=== PATIENT | female | born 1995 | race Caucasian/White ===

== ENCOUNTER 2017-06-26 12:01 | Inpatient (IN) | payer MEDICAID ==
[2017-06-27] MEDS ORDERED: Aluminum Hydroxide/Magnesium Hydroxide/Simethicone Susp 30 ML Cup PO PRN (16:44)
[2017-06-27] MEDS ORDERED: Ondansetron 4 MG/2 ML SDV IVPUSH PRN (16:44)
[2017-06-27] MEDS ORDERED: Nalbuphine 20 MG/1 ML Amp IVPUSH PRN (16:44)
[2017-06-27] MEDS ORDERED: Lidocaine 1% 50 ML MDV INJECT PRN (16:44)
[2017-06-27] MEDS ORDERED: Oxytocin/Lactated Ringers 10 UNIT/1,000 ML BAG IV SCH (16:45)
[2017-06-27] MEDS: Misoprostol 25 MCG (1/4 of 100 MCG) Tab VAG SCH ×3 (17:23→23:36)
[2017-06-27] MEDS ORDERED: Bupivacaine 0.25% 10 ML SDV ONE (22:22)
[2017-06-28] MEDS ORDERED: Oxytocin/Lactated Ringers 10 UNIT/1,000 ML BAG IV SCH
[2017-06-28] MEDS: Lactated Ringers 1,000 ML IV SCH ×2 (03:10→08:44)
[2017-06-28] MEDS ORDERED: fentaNYL 100 MCG/2 ML SDV ONE (03:44)
[2017-06-28] MEDS ORDERED: fentaNYL 100 MCG/2 ML SDV EPIDUR PRN (04:01)
[2017-06-28] MEDS ORDERED: Ondansetron 4 MG/2 ML SDV IVPUSH PRN (04:01)
[2017-06-28] MEDS ORDERED: ePHEDrine 50 MG/ML SDV IVPUSH PRN (04:01)
[2017-06-28] MEDS ORDERED: diphenhydrAMINE 50 MG/ML SDV IVPUSH PRN (04:01)
[2017-06-28] MEDS: Bupivacaine/fentaNYL/NS 100 ML Bag EPIDUR SCH ×2 (04:22→11:00)
--- NOTE | 2017-06-28 04:39 | PCM.PREANE ---
Preanesthetic Assessment - Procedure Proposed Procedure: KRISTIAN - Anesthesia/Transfusion/Family Hx Anesthesia History: No Prior Anesthesia Family History of Anesthesia Reaction: No Transfusion History: No Prior Transfusion(s) - Review of Systems General: No Symptoms Pulmonary: Other (asthma- prn inhaler ) Cardiovascular: No Symptoms Gastrointestinal: No Symptoms Neurological: No Symptoms Other: Reports: None - Physical Assessment NPO Status Date: 06/27/17 NPO Status Time: 17:00 O2 Sat by Pulse Oximetry: 94 Respiratory Rate: 17 Vital Signs: Last Vital Signs Temp 36.2 C 06/27/17 16:44 Pulse 102 H 06/27/17 16:44 Resp 17 06/27/17 16:44 BP 124/70 06/27/17 16:44 Pulse Ox 94 L 06/27/17 16:44 Height: 1.68 m Weight: 113.942 kg ASA Class: 2 Mental Status: Alert & Oriented x3 Airway Class: Mallampati = 2 Dentition: Reports: Normal Dentition Thyro-Mental Finger Breadths: 3 Mouth Opening Finger Breadths: 3 ROM/Head Extension: Full Lungs: Clear to Auscultation, Normal Respiratory Effort Cardiovascular: Regular Rate, Regular Rhythm - Lab Values: Laboratory Last Values WBC 10.58 K/mm3 (3.98-10.04) H 06/27/17 16:10 RBC 3.99 M/mm3 (3.98-5.22) 06/27/17 16:10 Hgb 12.3 gm/L (11.2-15.7) 06/27/17 16:10 Hct 35.7 % (34.1-44.9) 06/27/17 16:10 MCV 89.5 fl (79.4-94.8) 06/27/17 16:10 MCH 30.8 pg (25.6-32.2) 06/27/17 16:10 MCHC 34.5 g/dl (32.2-35.5) 06/27/17 16:10 RDW Std Deviation 38.2 fL (36.4-46.3) 06/27/17 16:10 Plt Count 337 K/mm3 (182-369) 06/27/17 16:10 MPV 9.3 fl (9.4-12.3) L 06/27/17 16:10 Neut % (Auto) 75.6 % (34.0-71.1) H 06/27/17 16:10 Lymph % (Auto) 14.2 % (19.3-51.7) L 06/27/17 16:10 [facility] [place] [facility] % (Auto) 7.9 % (4.7-12.5) 06/27/17 16:10 Eos % (Auto) 2.0 (0.7-5.8) 06/27/17 16:10 Baso % (Auto) 0.1 % (0.1-1.2) 06/27/17 16:10 Neut # (Auto) 8.00 K/mm3 (1.56-6.13) H 06/27/17 16:10 Lymph # (Auto) 1.50 K/mm3 (1.18-3.74) 06/27/17 16:10 [facility] [place] [facility] # (Auto) 0.84 K/mm3 (0.24-0.36) H 06/27/17 16:10 Eos # (Auto) 0.21 K/mm3 (0.04-0.36) 06/27/17 16:10 Baso # (Auto) 0.01 K/mm3 (0.01-0.08) 06/27/17 16:10 - Allergies Allergies/Adverse Reactions: Allergies Allergy/AdvReac Type Severity Reaction Status Date / Time azithromycin [From Zithromax] Allergy Rash Verified 06/27/17 15:57 Latex, Natural Rubber Allergy Rash Verified 06/27/17 15:57 - Blood Blood Available: No Product(s) Available: None - Anesthesia Plan Pre-Op Medication Ordered: None - Acknowledgements Anesthesia Type Planned: Epidural Pt an Appropriate Candidate for the Planned Anesthesia: Yes Alternatives and Risks of Anesthesia Discussed w Pt/Guardian: Yes Pt/Guardian Understands and Agrees with Anesthesia Plan: Yes PreAnesthesia Questionnaire Respiratory History: Reports: Asthma Psychiatric History: Reports: Anxiety, Depression, PTSD - SUBSTANCE USE Smoking Status *Q: Former Smoker Tobacco Use Within Last Twelve Months: Cigarettes Second Hand Smoke Exposure: No Recreational Drug Use History: No - HOME MEDS Home Medications: Home Meds Vit W-Ca,Fe,FA(<1 mg) [ Vitamins] 1 tab PO DAILY 06/27/17 [ History] - CURRENT (IN HOUSE) MEDS Current Meds: Current Medications Al Hydroxide/Mg Hydroxide (Mag-Al Plus) 30 ml PO Q8H PRN PRN Reason: Heartburn Diphenhydramine HCl (Benadryl) 25 mg IVPUSH Q6H PRN PRN Reason: Pruritis Ephedrine Sulfate (Ephedrine Sulfate) 5 mg IVPUSH ASDIRECTED PRN PRN Reason: Hypotension Fentanyl (Sublimaze) 100 mcg EPIDUR Q3H PRN PRN Reason: Pain Last Admin: 06/28/17 04:22 Dose: 100 mcg Fentanyl/Bupivacaine HCl (Fentanyl/Bupivacaine/Ns 2 Mcg-0.125% 100 Ml) 100 ml EPIDUR ASDIRECTED JAJA Last Admin: 06/28/17 04:22 Dose: 100 ml Lactated Ringer's (Ringers, Lactated) 1,000 mls @ 100 mls/hr IV ASDIRECTED JAJA Last Admin: 06/28/17 03:10 Dose: 100 mls/hr Oxytocin/Lactated Ringer's (Pitocin In Lr 10 Units/1,000 Ml) 10 unit in 1,000 mls @ 12 mls/hr IV TITRATE JAJA; 2 MUNITS/MIN PRN Reason: Protocol Last Admin: 06/28/17 03:10 Dose: 2 munits/min, 12 mls/hr Oxytocin/Lactated Ringer's (Pitocin In Lr 10 Units/1,000 Ml) 10 unit in 1,000 mls @ 500 mls/hr IV .CONTINUOUS JAJA Lidocaine HCl (Xylocaine 1%) 50 ml INJECT ONETIME PRN PRN Reason: perineal pain Nalbuphine HCl (Nubain) 10 mg IVPUSH Q2H PRN PRN Reason: Pain (moderate 4-6) Ondansetron HCl (Zofran) 4 mg IVPUSH Q4H PRN PRN Reason: Nausea/Vomiting Ondansetron HCl (Zofran) 4 mg IVPUSH ONETIME PRN PRN Reason: Nausea/Vomiting Discontinued Medications Fentanyl (Sublimaze) Confirm Administered Dose 100 mcg .ROUTE .STK-MED ONE Stop: 06/28/17 03:45 Misoprostol (Cytotec) 25 mcg VAG Q3H [facility] Stop: 06/27/17 23:01 Last Admin: 06/27/17 23:36 Dose: 25 mcg
--- NOTE | 2017-06-28 07:58 | HP ---
DATE OF ADMISSION: 06/27/2017 ADMISSION DIAGNOSIS: 39 and 2/7th week intrauterine , elective induction of labor. HISTORY OF PRESENT ILLNESS: The patient is a 21-year-old 1, para 0, white female, who is admitted for elective induction of labor. She has an COLLIN of 07/02/2017 as based upon a certain last menstrual period starting 09/25/2016 and supported by 5 ultrasounds done since that time. The procedure of induction of labor with Cytotec and Pitocin is discussed in detail. The risks, benefits, alternatives of care including waiting for onset of natural labor are all discussed in detail. She appears to understand, wishes to proceed and is admitted for that purpose. 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 The patient had menarche at age 13. Cycles every 30 days. Positive HCG was on 10/27/2016. Her last menstrual period was 09/25/2016 and was approximate. Her first visit was on 12/28/2016 at 13 and 3/7th weeks. The patient was seen on a regular basis throughout the course. Her weight gain was from 200 up to 248.6 pounds. Her vital signs remained stable throughout the course. Her fundal height growth was appropriate. She is planning to breastfeed. She was in the centering program. She declined genetic evaluation. She has had some depression with anxiety symptoms. [place]eda depression screen score on 02/19/2017 was 11/30. Her group B strep screen is negative. The patient has a history of PTSD/depression. She is Rh negative and did receive RhoGAM. Her influenza and Tdap were both administered on 04/16/2015. She is rubella immune. LABORATORY DATA: laboratory testing shows blood to be B negative with a negative antibody screen. Her hemoglobin and platelets at first visit were 14.4 g/dL and 255,000 respectively. She is rubella immune. RPR is nonreactive. Hepatitis B surface antigen is negative. HIV assays negative as were chlamydia and gonorrhea assays. Second trimester testing shows hemoglobin of 12.9 g/dL, platelets were 336,000, and 1-hour GTT was 81. Her group B strep screen was negative. ALLERGIES: Zithromax, which causes a rash. CURRENT MEDICATIONS: 1. History of sertraline 50 mg tablets daily. 2. ProAir HFA 108 mcg per actuation inhaler. 3. vitamins 1 daily. PAST MEDICAL HISTORY: 1. Asthma. 2. History of depression. 3. History of PTSD secondary to parental problems. PAST SURGICAL HISTORY: Unremarkable. FAMILY HISTORY: Mother is alive and has bipolar disorder. Father is alive with alcohol abuse and heart disease. One sister is alive and well. Maternal grandparents are not known. Paternal grandmother is alive, well, but with increased cholesterol. Paternal grandfather secondary to colon cancer. No bleeding, clotting, or anesthesia problems noted in the family. SOCIAL HISTORY: The patient is single. Her significant other is Bridger Barksdale. She lives in [place]. She does not use any significant amounts of alcohol, drugs, or tobacco. REVIEW OF SYSTEMS: GENERAL: The patient is doing well. She is comfortable, alert and oriented x3. SKIN: Unremarkable. CARDIOVASCULAR: No exercise intolerance or chest pain. LUNGS/RESPIRATORY: No shortness of breath or infectious symptomatology. BREASTS: Changes associated with - the patient plans to nurse. GASTROINTESTINAL: Negative. GENITOURINARY: Increased uterine size secondary to with baby in vertex presentation. CERVIX: 1-2 cm, 80% effaced, soft, -3 station, mid position on last evaluation on 06/18/2017. EXTREMITIES: Grossly within normal limits. NEUROLOGICAL: Grossly within normal limits. ASSESSMENT: 1. Thirty-nine and 2/7th week intrauterine , admitted for elective induction of labor. 2. Group B strep screen negative. 3. Generally healthy female otherwise. 4. Center inpatient. PLAN: 1. Anticipate normal spontaneous vaginal delivery. We will continue with Cytotec cervical ripening x3 doses and then switch to Pitocin augmentation/induction. We will rupture membranes at appropriate time. 2. Epidural for pain control. 3. Support nursing decision. [facility] /[id number]
--- NOTE | 2017-06-28 16:11 | PCM.SN ---
- Free Text/Narrative Note: Delivery note: Maria Del Carmen is a 21-year-old 1 now para 1001 white female who was admitted 06/27/2017 for induction of labor at 39-4/7. She progressed slowly but steadily to complete cervical dilation by the morning of 06/28/2017. She pushed for less than an hour and delivered a viable, holland, male infant weighing 3380 g (7 pounds 7.2 ounces), length of 20.5 inches, with Apgars of 8 and 9 at 1125 hrs. on 06/28/2017. Baby was placed on mom's abdomen. Nose multiple section. Cords clamped 2 and then was cut by the father. Cord blood was obtained. The cord had 3 vessels present in it. Pitocin semester and IV after delivery of the baby to facilitate increase in uterine tone and reduce risk of bleeding. The placenta delivered at in a Harmon presentation at 1128 hrs., it appeared complete and intact. It was discarded per patient desire. Patient plans to nurse. Estimated blood loss 100 mL. Condition: Good
[2017-06-28] MEDS ORDERED: Acetaminophen 325 MG Tab PO PRN (17:17)
[2017-06-28] MEDS ORDERED: Benzocaine/Menthol 20%-0.5% Spray 56 GM Canister TOP PRN (17:17)
[2017-06-28] MEDS ORDERED: Docusate Sodium 100 MG Cap PO PRN (17:17)
[2017-06-28] MEDS ORDERED: Lanolin 100% Cream 7 GM Tube TOP PRN (17:17)
[2017-06-28] MEDS ORDERED: Witch Hazel Medicated Pads 100/Jar TOP PRN (17:17)
[2017-06-28] MEDS: Ibuprofen 600 MG Tab PO PRN (21:09)
[2017-06-29] MEDS: Ibuprofen 600 MG Tab PO PRN ×3 (03:43→20:10)
--- NOTE | 2017-06-29 09:56 | PCM48HPAN ---
Post Anesthesia Note - EVALUATION WITHIN 48HRS OF ANESTHETIC Vital Signs in Normal Range: Yes Patient Participated in Evaluation: Yes Respiratory Function Stable: Yes Airway Patent: Yes Cardiovascular Function Stable: Yes Hydration Status Stable: Yes Pain Control Satisfactory: Yes Nausea and Vomiting Control Satisfactory: Yes Mental Status Recovered: Yes
[2017-06-29] MEDS: Prenatal Multivitamin with Calcium/Folic Acid/Iron Tab PO SCH (14:08)
[2017-06-30] MEDS: Prenatal Multivitamin with Calcium/Folic Acid/Iron Tab PO SCH (08:24)
[2017-06-30] MEDS: Ibuprofen 600 MG Tab PO PRN (09:52)
--- NOTE | 2017-06-30 10:06 | PCM.SN ---
- Free Text/Narrative Note: Post Progress Note PPD # 1 Subjective: Doing well overall. Ambulating without difficulty. Lochia minimal. Voiding without difficulty. Tolerating regular diet. Pain controlled with oral medications. Breast feeding with minimal difficulty. Objective: Vitals: Vital Signs 06/30/17 03:45 Temperature 36.3 C Pulse, 95 Peripheral Respiratory 15 Rate Blood Pressure 116/59 L O2 Sat by Pulse 99 Oximetry Physical Exam General: Alert and oriented, no acute distress Lungs: Clear to auscultation bilaterally Heart: Regular rate and rhythm Abdomen: Soft, minimal appropriate tenderness, non-distended, fundus midline, nontender, and below the umbilicus Extremities: No edema ASSESSMENT: 21-year-old female G 1 P 1001 s/p normal vaginal delivery PPD #2, complicated by Rh- status PLAN: Doing well Breast feeding with minimal difficulty. Assist as needed Lochia minimal. Continue to monitor for appropriate lochia. Continue routine care Patient with Rh- blood status status post RhoGAM administration Anticipate discharge home today Mykel Meraz MD 10:05 AM 06/30/2017
--- NOTE | 2017-06-30 10:13 | PCM.DCSUM1 ---
Discharge Summary - Hospital Course Free Text/Narrative:: Delivery note: Maria Del Carmen is a 21-year-old 1 now para 1001 white female who was admitted 06/27/2017 for induction of labor at 39-4/7. She progressed slowly but steadily to complete cervical dilation by the morning of 06/28/2017. She pushed for less than an hour and delivered a viable, holland, male weighing 3380 g (7 pounds 7.2 ounces), length of 20.5 inches, with Apgars of 8 and 9 at 1125 hrs. on 06/28/2017. Baby was placed on mom's abdomen. Nose multiple section. Cords clamped 2 and then was cut by the father. Cord blood was obtained. The cord had 3 vessels present in it. Pitocin semester and IV after delivery of the baby to facilitate increase in uterine tone and reduce risk of bleeding. The placenta delivered at in a Harmon presentation at 1128 hrs., it appeared complete and intact. It was discarded per patient desire. Patient plans to nurse. Estimated blood loss 100 mL. Condition: Good HPI Initial Comments: Delivery note: Maria Del Carmen is a 21-year-old 1 now para 1001 white female who was admitted 06/27/2017 for induction of labor at 39-4/7. She progressed slowly but steadily to complete cervical dilation by the morning of 06/28/2017. She pushed for less than an hour and delivered a viable, holland, male weighing 3380 g (7 pounds 7.2 ounces), length of 20.5 inches, with Apgars of 8 and 9 at 1125 hrs. on 06/28/2017. Baby was placed on mom's abdomen. Nose multiple section. Cords clamped 2 and then was cut by the father. Cord blood was obtained. The cord had 3 vessels present in it. Pitocin semester and IV after delivery of the baby to facilitate increase in uterine tone and reduce risk of bleeding. The placenta delivered at in a Harmon presentation at 1128 hrs., it appeared complete and intact. It was discarded per patient desire. Patient plans to nurse. Estimated blood loss 100 mL. Condition: Good Brief History: Delivery note: Maria Del Carmen is a 21-year-old 1 now para 1001 white female who was admitted 06/27/2017 for induction of labor at 39-4/7. She progressed slowly but steadily to complete cervical dilation by the morning of 06/28/2017. She pushed for less than an hour and delivered a viable, holland, male weighing 3380 g (7 pounds 7.2 ounces), length of 20.5 inches, with Apgars of 8 and 9 at 1125 hrs. on 06/28/2017. Baby was placed on mom's abdomen. Nose multiple section. Cords clamped 2 and then was cut by the father. Cord blood was obtained. The cord had 3 vessels present in it. Pitocin semester and IV after delivery of the baby to facilitate increase in uterine tone and reduce risk of bleeding. The placenta delivered at in a Harmon presentation at 1128 hrs., it appeared complete and intact. It was discarded per patient desire. Patient plans to nurse. Estimated blood loss 100 mL. Condition: Good - Discharge Data Discharge Date: 06/30/17 Discharge Disposition: Home, Self-Care 01 Condition: Good - Discharge Diagnosis/Problem(s) (1) (normal spontaneous vaginal delivery) SNOMED Code(s): 37975694 ICD Code: O80 - ENCOUNTER FOR FULL-TERM UNCOMPLICATED DELIVERY Status: Acute Current Visit: Yes (2) Rh negative status during SNOMED Code(s): 354596023 ICD Code: O09.899 - SUPERVISION OF OTHER HIGH RISK PREGNANCIES, UNSP TRIMESTER Status: Acute Current Visit: Yes - Patient Summary/Data Complications: None Consults: None Hospital Course: Patient was admitted for induction of labor on 06/27/2017. She progressed to complete and pushing and had a normal spontaneous vaginal delivery on 2016. Her course was overall uncomplicated and she was meeting all milestones. She was tolerating regular diet with minimal nausea and vomiting. She was voiding without difficulty. She was ambulating with minimal difficulty. She was breast-feeding without difficulty. She was Rh- blood type and received RhoGAM prior to discharge. On day #2 she was continuing to meet all milestones and desired to be discharged home. She will follow up with Dr. Pearson in 2 weeks or earlier as needed. - Patient Instructions Diet: Regular Diet as Tolerated Activity: As Tolerated Activity, Other: Nothing per vagina for 6 weeks Driving: May Drive Today Showering/Bathing: May Shower, No Tub Bathing/Swimming (For 2 weeks) Notify Provider of: Fever, Increased Pain, Swelling and Redness, Drainage, Nausea and/or Vomiting - Discharge Plan Home Medications: Home Meds Vit W-Ca,Fe,FA(<1 mg) [ Vitamins] 1 tab PO DAILY 06/27/17 [ History] Acetaminophen [Tylenol] 650 mg PO Q6H PRN tablet 06/30/17 [Rx] Docusate Sodium [Colace] 100 mg PO BID PRN cap 06/30/17 [Rx] Ibuprofen [IJD: Ibuprofen] 600 mg PO Q6H PRN tablet 06/30/17 [Rx] Lanolin [Lansinoh HPA] 1 applic TOP ASDIRECTED PRN tube 06/30/17 [Rx] Witch Regla [Tucks] 1 pad TOP ASDIRECTED PRN pad 06/30/17 [Rx] Patient Handouts: Mastitis, [id number], and Mastitis, Depression and Baby Blues, Vaginal Delivery, Care After, Challenges and Solutions Referrals: Orlin Pearson MD [Primary Care Provider] - (Follow-up in 2 weeks or earlier as needed.) - Discharge Summary/Plan Comment DC Time >30 min.: No - Patient Data Vitals - Most Recent: Last Vital Signs Temp 36.3 C 06/30/17 03:45 Pulse 95 06/30/17 03:45 Resp 15 06/30/17 03:45 BP 116/59 L 06/30/17 03:45 Pulse Ox 99 06/30/17 03:45 Weight - Most Recent: 113.942 kg I&O - Last 24 hours: Intake & Output 06/29/17 06/30/17 06/30/17 22:59 06:59 14:59 Intake Total 120 Balance 120 Med Orders - Current: Current Medications Acetaminophen (Tylenol) 650 mg PO Q4H PRN PRN Reason: mild pain or fever Benzocaine/Menthol (Dermoplast Pain Relief [place]) 0 gm TOP ASDIRECTED PRN PRN Reason: Perineal Comfort Measure Last Admin: 06/29/17 12:19 Dose: 1 spray Docusate Sodium (Colace) 100 mg PO BID PRN PRN Reason: Constipation Emollient Ointment (Lansinoh Hpa) 0 gm TOP ASDIRECTED PRN PRN Reason: Sore Nipples Ibuprofen (Motrin) 600 mg PO Q4H PRN PRN Reason: Mild pain or fever Last Admin: 06/30/17 09:52 Dose: 600 mg Prenat Multivit/Sabine/Iron/Folic Ac ( Plus Iron) 1 each PO DAILY JAJA Last Admin: 06/30/17 08:24 Dose: Not Given Elinor Regla (Tucks) 1 pad TOP ASDIRECTED PRN PRN Reason: Hemorrhoid pain Last Admin: 06/29/17 12:20 Dose: 1 pad Discontinued Medications Al Hydroxide/Mg Hydroxide (Mag-Al Plus) 30 ml PO Q8H PRN PRN Reason: Heartburn Bupivacaine HCl (Sensorcaine-Mpf 0.25%) 10 ml .ROUTE .STK-MED ONE Stop: 06/27/17 22:23 Diphenhydramine HCl (Benadryl) 25 mg IVPUSH Q6H PRN PRN Reason: Pruritis Ephedrine Sulfate (Ephedrine Sulfate) 5 mg IVPUSH ASDIRECTED PRN PRN Reason: Hypotension Fentanyl (Sublimaze) Confirm Administered Dose 100 mcg .ROUTE .STK-MED ONE Stop: 06/28/17 03:45 Last Admin: 06/28/17 04:37 Dose: Not Given Fentanyl (Sublimaze) 100 mcg EPIDUR Q3H PRN PRN Reason: Pain Last Admin: 06/28/17 04:22 Dose: 100 mcg Fentanyl/Bupivacaine HCl (Fentanyl/Bupivacaine/Ns 2 Mcg-0.125% 100 Ml) 100 ml EPIDUR ASDIRECTED JAJA Last Admin: 06/28/17 11:00 Dose: 100 ml Lactated Ringer's (Ringers, Lactated) 1,000 mls @ 100 mls/hr IV ASDIRECTED JAJA Last Admin: 06/28/17 08:44 Dose: 100 mls/hr Oxytocin/Lactated Ringer's (Pitocin In Lr 10 Units/1,000 Ml) 10 unit in 1,000 mls @ 12 mls/hr IV TITRATE JAJA; 2 MUNITS/MIN PRN Reason: Protocol Last Titration: 06/28/17 08:30 Dose: 1 munits/min, 6 mls/hr Oxytocin/Lactated Ringer's (Pitocin In Lr 10 Units/1,000 Ml) 10 unit in 1,000 mls @ 500 mls/hr IV .CONTINUOUS JAJA Lidocaine HCl (Xylocaine 1%) 50 ml INJECT ONETIME PRN PRN Reason: perineal pain Misoprostol (Cytotec) 25 mcg VAG Q3H JAJA Stop: 06/27/17 23:01 Last Admin: 06/27/17 23:36 Dose: 25 mcg Nalbuphine HCl (Nubain) 10 mg IVPUSH Q2H PRN PRN Reason: Pain (moderate 4-6) Ondansetron HCl (Zofran) 4 mg IVPUSH Q4H PRN PRN Reason: Nausea/Vomiting Ondansetron HCl (Zofran) 4 mg IVPUSH ONETIME PRN PRN Reason: Nausea/Vomiting *Q Meaningful Use (DIS) - VTE *Q VTE Criteria *Q: - Stroke *Q Stroke Criteria *Q: - AMI *Q AMI Criteria *Q:
== END 2017-06-30 11:44 | disposition home or self-care (01) | DRG 775 ==
LOC: JD.OB 06-27 15:27 → OBSVTOIN 06-27 16:02 → INTOOBSV 06-27 16:02 → JD.OB 06-27 16:02 → OBSVTOIN 06-28 11:35 → JD.OB 06-28 11:35 → UNDODISIN 06-30 11:44
PROVIDERS: ADMIT Obstetrics & Gynecology; ATTEND Obstetrics & Gynecology
PROC: 10E0XZZ Delivery of Products of Conception, External Approach (ICD-10-PCS; principal; 2017-06-28)
PROC: 3E0234Z Introduction of Serum, Toxoid and Vaccine into Muscle, Percutaneous Approach (ICD-10-PCS; 2017-06-28)
PROC: 3E0P3VZ Introduction of Hormone into Female Reproductive, Percutaneous Approach (ICD-10-PCS; 2017-06-28)
PROC: 3E0P7VZ Introduction of Hormone into Female Reproductive, Via Natural or Artificial Opening (ICD-10-PCS; 2017-06-28)
PROC: 00HU33Z Insertion of Infusion Device into Spinal Canal, Percutaneous Approach (ICD-10-PCS; 2017-06-28)
DX: O36.0930 Maternal care for other rhesus isoimmunization, third trimester, not applicable or unspecified (principal); O99.52 Diseases of the respiratory system complicating childbirth; Z3A.39 39 weeks gestation of pregnancy; Z37.0 Single live birth; J45.909 Unspecified asthma, uncomplicated; Z87.891 Personal history of nicotine dependence; Z88.1 Allergy status to other antibiotic agents; Z91.040 Latex allergy status
CPT/HCPCS: 36415; 51702; 59409; 85025; 85027; 85461; 86850; 86900; 86901; A9270-GY; J2590; J2790; J3010; J7120

== ENCOUNTER 2019-09-05 08:48 | Emergency (ER) | payer MEDICAID ==
--- NOTE | 2019-09-05 09:40 | EDM.PDOC ---
ED HPI GENERAL MEDICAL PROBLEM - General Chief Complaint: Headache Stated Complaint: HEADACHE Time Seen by Provider: 09/05/19 09:40 Source of Information: Reports: Patient History Limitations: Reports: No Limitations - History of Present Illness INITIAL COMMENTS - FREE TEXT/NARRATIVE: 23-year-old female presents to the ED with acute onset of illness yesterday morning with fever and headache. This is subsequently developed into a productive cough generalized myalgia and loss of appetite. All symptoms strongly suspicious for influenza. Dates the headache is generalized constant throbbing and pounding. Associate with very mild nausea. Complete loss of appetite. She feels very weak and dizzy when she tries to stand up. She has been using Tylenol and Motrin mostly yesterday throughout the day to get through work and to control fever relief. Did not sleep very well last night. Cough sounds productive but she is not able to get much sputum up. History of migraines. Denies any possibility of Onset: Sudden Onset Date: 09/04/19 (Woke with headache and fever yesterday morning.) Duration: Day(s):, Getting Worse Location: Reports: Head, Chest, Generalized, Other (Neurolyse myalgia loss of appetite) Quality: Reports: Ache Severity: Moderate (Lysed aching.) Improves with: Reports: None Worsens with: Reports: None Associated Symptoms: Reports: Cough (Weight loss of appetite.), cough w sputum, Loss of Appetite, Malaise, Other Treatments [employer]ER: Reports: Acetaminophen, NSAIDS Headache Pain Score (Numeric/FACES): 8 - Related Data Allergies Allergy/AdvReac Type Severity Reaction Status Date / Time azithromycin [From Zithromax] Allergy Rash Verified 09/05/19 09:00 Latex, Natural Rubber Allergy Rash Verified 09/05/19 09:00 Home Meds: Home Meds Vit Calc,Iron,Folic [ Vitamins] 1 tab PO DAILY 06/27/17 [ History] Acetaminophen [Tylenol] 650 mg PO Q6H PRN tablet 06/30/17 [Rx] Hydrocodone/Chlorphen P-Stirex [Hydrocodone-Chlorphen ER Susp] 5 ml PO Q12H PRN #60 ml 09/05/19 [Rx] Montelukast [Singulair] 10 mg PO DAILY 09/05/19 [History] Oseltamivir [Tamiflu] 75 mg PO BID #10 cap 09/05/19 [Rx] Sertraline [Zoloft] 150 mg PO DAILY 09/05/19 [History] Past Medical History Respiratory History: Reports: Asthma Psychiatric History: Reports: Anxiety, Depression, PTSD Social & Family History - Family History Family Medical History: Noncontributory - Tobacco Use Smoking Status *Q: Current Every Day Smoker Years of Tobacco use: 3 Packs/Tins Daily: 0.5 - Caffeine Use Caffeine Use: Reports: Coffee - Recreational Drug Use Recreational Drug Use: No - Living Situation & Occupation Living situation: Reports: Single Occupation: Employed ED ROS GENERAL - Review of Systems Review Of Systems: See Below Constitutional: Reports: Fever, Chills, Malaise, Weakness, Fatigue, Decreased Appetite HEENT: Reports: Ear Pain, Throat Pain Respiratory: Reports: Shortness of Breath, Cough, Sputum Cardiovascular: Reports: Chest Pain, Lightheadedness. Denies: Blood Pressure Problem (Coughing), Claudication, Dyspnea on Exertion, Edema (Standing up), Orthopnea Endocrine: Reports: Fatigue, Other (Neurolyse weakness) GI/Abdominal: Reports: Decreased Appetite, Nausea. Denies: Diarrhea, Vomiting : Reports: No Symptoms (Nausea) Musculoskeletal: Reports: Muscle Pain (Generalized myalgia) Skin: Reports: No Symptoms Neurological: Reports: Dizziness, Headache Psychiatric: Reports: No Symptoms Hematologic/Lymphatic: Reports: No Symptoms Immunologic: Reports: No Symptoms - Physical Exam Exam: See Below Exam Limited By: No Limitations General Appearance: Alert, WD/WN, Mild Distress, Other (Peers ill. She is warm to palpation. Temperature is 36.7 but she feels much warmer than this. Heart rate is 128 in sinus at the bedside. Respiratory is 20 with O2 sats of 94% on room air. BP is 122/80) Eye Exam: Bilateral Eye: Normal Inspection, PERRL Ears: Normal TMs Throat/Mouth: Normal Lips, Normal Teeth, Normal Gums, Normal Voice, No Airway Compromise, Inflammation (Diffuse erythema of the posterior oropharynx and soft palate. May be from coughing.), Other (Oropharynx is diffusely erythematous and some of the soft tissues particular soft palate and glossopalatine folds on the right side are slightly swollen with mild exudate. Rapid strep will be done ). No: Normal Oropharynx Head Exam: Atraumatic, Normocephalic Neck: Normal Inspection, Supple, Non-Tender, Full Range of Motion. No: Lymphadenopathy (L), Lymphadenopathy (R) Respiratory/Chest: No Respiratory Distress, Lungs Clear, Normal Breath Sounds, No Accessory Muscle Use Cardiovascular: Normal Peripheral Pulses, Regular Rate, Rhythm, No Edema, No Murmur, No Rub GI/Abdominal: Normal Bowel Sounds, Soft, Non-Tender, No Organomegaly Neuro Exam (Abbreviated): Alert, Oriented, CN II-XII Intact, Normal Cognition, Normal Gait Extremities: Normal Inspection, Normal Range of Motion, Non-Tender Psychiatric: Normal Affect, Normal Mood Skin Exam: Warm, Dry, Intact, Normal Color, No Rash Course - Vital Signs Last Recorded V/S: Last Vital Signs Temp 36.7 C 09/05/19 08:58 Pulse 128 H 09/05/19 08:58 Resp 20 09/05/19 08:58 BP 122/80 09/05/19 08:58 Pulse Ox 94 L 09/05/19 08:58 - Orders/Labs/Meds Orders: Active Orders 24 hr Category Date Time Status CULTURE STREP A CONFIRMATION [] Stat Lab 09/05/19 10:10 Results STREP SCRN A RAPID W CULT CONF [] Stat Lab 09/05/19 10:10 Results Dextrose 5%-0.9% NaCl [Dextrose 5%-Normal Saline] 1,000 Med 09/05/19 10:00 Active ml IV ASDIRECTED Ketorolac [Toradol] Med 09/05/19 10:00 Active 30 mg IVPUSH ONETIME Medication Orders Dextrose/Sodium Chloride (Dextrose 5%-Normal Saline) 1,000 mls @ 999 mls/hr IV ASDIRECTED JAJA Last Admin: 09/05/19 10:18 Dose: 999 mls/hr Ketorolac Tromethamine (Toradol) 30 mg IVPUSH ONETIME JAJA Last Admin: 09/05/19 10:19 Dose: 30 mg Meds: Medications Generic Name Dose Route Start Last Admin Trade Name Freq PRN Reason Stop Dose Admin Dextrose/Sodium Chloride 1,000 mls @ 999 mls/hr 09/05/19 10:00 09/05/19 10:18 Dextrose 5%-Normal Saline IV 999 mls/hr ASDIRECTED JAJA Administration Ketorolac Tromethamine 30 mg 09/05/19 10:00 09/05/19 10:19 Toradol IVPUSH 30 mg ONETIME JAJA Administration Discontinued Medications Generic Name Dose Route Start Last Admin Trade Name Saravanan PRN Reason Stop Dose Admin Hydromorphone HCl 1 mg 09/05/19 09:50 09/05/19 10:53 Dilaudid IVPUSH 09/05/19 09:51 0.5 mg ONETIME ONE Administration Metoclopramide HCl 7.5 mg 09/05/19 09:50 09/05/19 10:19 Reglan IVPUSH 09/05/19 09:51 7.5 mg ONETIME ONE Administration - Radiology Interpretation Free Text/Narrative:: 23-year-old female presents to the ED with acute onset of fever and then headache and development of a paroxysmal productive cough and loss of appetite starting yesterday morning. Headache is continuous throbbing and worsened by cough. Clinically she has all the signs and symptoms of influenza. She is tachycardic at the bedside at 128. She clinically is febrile in spite of nurses recording of temperature 36.9. Plan IV will be D5 normal saline at open. She will be given Toradol 30 mg IV with allotted 1 mg IV and Reglan 7.5 mg IV for headache body ache and pain relief. She will have screens done for rapid strep and influenza. Note her O2 sats only 94% on room air suggesting possibility of airspace consolidation. - Re-Assessments/Exams Free Text/Narrative Re-Assessment/Exam: 09/05/19 10:36 strep screen is negative. 09/05/19 11:36 influenza screen is positive for the type A virus. Patient will be treated with Tamiflu 75 mg twice daily for the next 5 days. She will be out of work for the another 6 days since her illness started yesterday. I will send her home with cough syrup Penntuss 5 mils every 12 hours as needed for cough relief. She will continue Motrin 600 mg every 6 hours as needed for fever and body ache relief. She has pretty well finished a liter of IV fluids and is feeling better at this point in time. I will give prophylactic medication to her son who is starting to cough today and has asthma. He is name is Abiel barksdale and he is 29 pounds. I also provide prophylaxis to her fianc Bridger Barksdale--Tamiflu 75 mg once daily for 10 days. Departure - Departure Time of Disposition: 11:38 Disposition: Home, Self-Care 01 Condition: Fair Clinical Impression: Influenza due to influenza virus, type A, human - Discharge Information *PRESCRIPTION DRUG MONITORING PROGRAM REVIEWED*: Not Applicable *COPY OF PRESCRIPTION DRUG MONITORING REPORT IN PATIENT [place]: Not Applicable Prescriptions: Hydrocodone/Chlorphen P-Stirex [Hydrocodone-Chlorphen ER Susp] 5 ml PO Q12H PRN #60 ml PRN Reason: Cough relief Oseltamivir [Tamiflu] 75 mg PO BID #10 cap Instructions: Influenza, Adult, [id number] Referrals: Mable Bonilla PA-C [Primary Care Provider] - Forms: ED Department Discharge, ED Return to Work/School Form Additional Instructions: Evaluation in the emergency room today in regards to development of acute onset of fever, chills, headache, cough yesterday evening and worse today. You have all the signs and symptoms of influenza. Your throat was fairly erythematous and was red and swollen and therefore a rapid strep screen was also done. It proved to be negative. Screen test for influenza was positive for the type a virus. You will need to be off work for the next week as you are considered contagious to others through cough droplets. Treatment is antiviral medicine Tamiflu 75 mg twice daily for the next 5 days to bring the infection under control much faster for you. Usually you start to feel much improved within 3 and 4 tablets of Tamiflu. Take Motrin 600 mg every 6 hours to control fever, headache and body ache relief. Plenty of fluids and diet as tolerated as this illness usually eats a complete loss of appetite. Great or Powerade are excellent sources of rehydration fluid. Syrup is called Penntuss and can be taken every 12 hours as necessary for cough relief. Usually plan on taking about an hour before bedtime as it takes a good hour to work and coughing usually worsens when you lie down. Up with personal care physician if any further problems occur. Sepsis Event Note - Evaluation Sepsis Screening Result: No Definite Risk - Focused Exam Vital Signs: Vital Signs Temp Pulse Resp BP Pulse Ox 09/05/19 08:58 36.7 C 128 H 20 122/80 94 L Date Exam was Performed: 09/05/19 Time Exam was Performed: 11:35 - My Orders Last 24 Hours: My Active Orders 09/05/19 10:00 Dextrose 5%-0.9% NaCl [Dextrose 5%-Normal Saline] 1,000 ml IV ASDIRECTED Ketorolac [Toradol] 30 mg IVPUSH ONETIME 09/05/19 10:10 CULTURE STREP A CONFIRMATION [RM] Stat STREP SCRN A RAPID W CULT CONF [] Stat - Assessment/Plan Last 24 Hours: My Active Orders 09/05/19 10:00 Dextrose 5%-0.9% NaCl [Dextrose 5%-Normal Saline] 1,000 ml IV ASDIRECTED Ketorolac [Toradol] 30 mg IVPUSH ONETIME 09/05/19 10:10 CULTURE STREP A CONFIRMATION [RM] Stat STREP SCRN A RAPID W CULT CONF [] Stat
[2019-09-05] MEDS ORDERED: HYDROmorphone 1 MG/ML Syringe IVPUSH ONE (09:50)
[2019-09-05] MEDS ORDERED: Metoclopramide 10 MG/2 ML SDV IVPUSH ONE (09:50)
[2019-09-05] MEDS ORDERED: Ketorolac 30 MG/ML SDV IVPUSH SCH (10:00)
[2019-09-05] MEDS ORDERED: Dextrose 5%-0.9% NaCl 1,000 ML IV SCH (10:00)
== END 2019-09-05 11:57 | disposition home or self-care (01) ==
LOC: JD.ED 08:48
DX: J10.1 Influenza due to other identified influenza virus with other respiratory manifestations (principal); F17.210 Nicotine dependence, cigarettes, uncomplicated; F41.9 Anxiety disorder, unspecified; F32.9 Major depressive disorder, single episode, unspecified; Z91.040 Latex allergy status; Z88.1 Allergy status to other antibiotic agents; Z79.899 Other long term (current) drug therapy
CPT/HCPCS: 87081; 87430; 87804; 96361; 96374; 96375; 99284; J1170; J1885; J2765; J7042; 99283

== ENCOUNTER 2022-05-01 03:50 | Inpatient (IN) | payer BC, MEDICAID ==
[~2022-05-01 03:50] MED LIST: Bupivacaine 0.25% 10 ML SDV ONE
[2022-05-01] MEDS ORDERED: Ondansetron 4 MG/2 ML SDV IVPUSH PRN (04:16)
[2022-05-01] MEDS ORDERED: Nalbuphine HCl 10 MG/ 1ML Amp IVPUSH PRN (04:16)
[2022-05-01] MEDS ORDERED: Sodium Chloride 0.9% 10 ML Syringe FLUSH PRN (04:16)
[2022-05-01] MEDS ORDERED: Calcium Carbonate 500 MG Tab.Chew PO PRN (04:16)
[2022-05-01] MEDS ORDERED: Oxytocin/Lactated Ringers 10 UNIT/1,000 ML BAG IV SCH ×2 (04:30)
[2022-05-01] MEDS ORDERED: Lactated Ringers 1,000 ML IV SCH (04:30)
[2022-05-01] MEDS ORDERED: fentaNYL 100 MCG/2 ML SDV EPIDUR PRN (04:51)
[2022-05-01] MEDS ORDERED: Bupivacaine/fentaNYL/NS 100 ML Bag EPIDUR PRN (04:51)
[2022-05-01] MEDS ORDERED: diphenhydrAMINE 50 MG/ML SDV IVPUSH PRN (04:51)
[2022-05-01] MEDS ORDERED: ePHEDrine 50 MG/ML SDV IVPUSH PRN (04:51)
[2022-05-01] MEDS ORDERED: Methylergonovine 0.2 MG/1 ML Amp ONE (05:13)
[2022-05-01] MEDS ORDERED: Sodium Chloride 0.9% 10 ML Syringe FLUSH SCH (09:00)
[2022-05-01] MEDS ORDERED: Acetaminophen 325 MG Tab PO PRN (18:14)
[2022-05-01] MEDS ORDERED: Witch Hazel Medicated Pads 40/Jar TOP PRN (18:15)
[2022-05-01] MEDS ORDERED: Docusate Sodium 100 MG Cap PO PRN (18:15)
[2022-05-01] MEDS ORDERED: Benzocaine/Menthol 20%-0.5% Spray 78 GM Cannister TOP PRN (18:16)
[2022-05-01] MEDS: Ibuprofen 600 MG Tab PO PRN (18:31)
[2022-05-02] MEDS: Ibuprofen 600 MG Tab PO PRN (09:28)
== END 2022-05-02 12:03 | disposition home or self-care (01) | DRG 560 ==
LOC: JD.OBCHECK 03:50 → JD.OB 03:54 → JD.OBCHECK 04:15 → JD.OB 04:16 → OBSVTOIN 05:28 → JD.OB 05:29
PROVIDERS: ADMIT Obstetrics & Gynecology; ATTEND Obstetrics & Gynecology
PROC: 10E0XZZ Delivery of Products of Conception, External Approach (ICD-10-PCS; principal; 2022-05-01)
PROC: 0HQ9XZZ Repair Perineum Skin, External Approach (ICD-10-PCS; 2022-05-01)
PROC: 3E0R3BZ Introduction of Anesthetic Agent into Spinal Canal, Percutaneous Approach (ICD-10-PCS; 2022-05-01)
PROC: 00HU33Z Insertion of Infusion Device into Spinal Canal, Percutaneous Approach (ICD-10-PCS; 2022-05-01)
DX: O99.52 Diseases of the respiratory system complicating childbirth (principal); Z37.0 Single live birth; O99.344 Other mental disorders complicating childbirth; F41.9 Anxiety disorder, unspecified; F32.A Depression, unspecified; J45.909 Unspecified asthma, uncomplicated; O70.0 First degree perineal laceration during delivery; O69.81X0 Labor and delivery complicated by cord around neck, without compression, not applicable or unspecified; Z3A.39 39 weeks gestation of pregnancy
CPT/HCPCS: 36415; 59025; 59409; 85025; 85461; 86592; 86850; 86900; 86901; A9270-GY; J2210; J2790; J3010; J3490; J7120

== ENCOUNTER 2023-10-18 16:29 | Emergency (ER) | payer BC, MEDICAID ==
[2023-10-18] MEDS: EPINEPHrine 1 MG/ML SDV SUBCUT ONE (16:45)
[2023-10-18] MEDS: Racepinephrine 2.25% 0.5 ML Neb Soln NEB ONE ×2 (16:57→18:12)
[2023-10-18] MEDS: Sodium Chloride 0.9% Inhalation Soln 3 ML Neb INH PRN ×2 (16:57→17:05)
[2023-10-18] MEDS: Racepinephrine 2.25% 0.5 ML Neb Soln ONE (17:05)
[2023-10-18] MEDS: methylPREDNISolone Sodium Succinate 125 MG/2 ML SDV IVPUSH ONE (17:13)
[2023-10-18] MEDS: diphenhydrAMINE 50 MG/ML SDV IVPUSH ONE (17:13)
[2023-10-18] MEDS: EPINEPHrine 1 MG in Sodium Chloride 0.9% 100 ML IV SCH (17:25)
[2023-10-18] MEDS: Sodium Chloride 0.9% 1,000 ML IV ONE (17:35)
[2023-10-18] MEDS: Famotidine 20 MG/2 ML SDV IVPUSH ONE (17:35)
[2023-10-18] MEDS ORDERED: LORazepam 1 MG Tab PO ONE (18:02)
[2023-10-18] MEDS ORDERED: Sodium Chloride 0.9% 1,000 ML IV ONE (18:03)
[2023-10-18] MEDS: Acetaminophen/HYDROcodone 325-5 MG Tab PO ONE (19:55)
[2023-10-18] MEDS: Sodium Chloride 0.9% 100 ML ONE (19:55)
[2023-10-18] MEDS: EPINEPHrine 1 MG/ML SDV ONE (19:55)
== END 2023-10-18 19:56 ==
LOC: JD.ED 16:29
DX: T78.2XXA Anaphylactic shock, unspecified, initial encounter (principal); J45.909 Unspecified asthma, uncomplicated; Z79.899 Other long term (current) drug therapy; Z91.040 Latex allergy status; Z88.1 Allergy status to other antibiotic agents
CPT/HCPCS: 71045; 94640; 96365; 96366; 96372; 96375; 99285; A9270; J0171; J1200; J2930; J3490; J7030; 99284

== ENCOUNTER 2024-04-29 21:06 | Emergency (ER) | payer BC ==
[2024-04-29] MEDS: Lidocaine 1% 10 ML MDV INJECT ONE (21:57)
== END 2024-04-29 22:00 | disposition home or self-care (01) ==
LOC: JD.ED 21:06
DX: S91.311A Laceration without foreign body, right foot, initial encounter (principal); J45.909 Unspecified asthma, uncomplicated; E66.9 Obesity, unspecified; Z68.36 Body mass index [BMI] 36.0-36.9, adult; Z88.1 Allergy status to other antibiotic agents; Z91.040 Latex allergy status; Z91.048 Other nonmedicinal substance allergy status; Z79.899 Other long term (current) drug therapy; Z79.51 Long term (current) use of inhaled steroids; W26.8XXA Contact with other sharp object(s), not elsewhere classified, initial encounter
CPT/HCPCS: 12001; 99282; J3490